=== PATIENT | male | born 1975 | race Caucasian/White ===

== ENCOUNTER 2021-08-21 09:46 | Emergency (ER) | payer OTHER ==
[~2021-08-21] VITALS: Ht 177.8 cm; Wt 806.0 kg
[2021-08-21 10:17] VITALS: BP_SYST 142
--- NOTE | 2021-08-21 10:25 | NUR ---
Patient to ER bed 6 to gown for evaluation. Side rails up. Report given to Jossy LYNNE.
--- NOTE | 2021-08-21 10:30 | NUR ---
ER at bedside examining patient.
--- NOTE | 2021-08-21 10:45 | NUR ---
PT C/O HEMOPYTISIS X 1.PT H/O REAL CA W/METS TO LUNGS.
[2021-08-21 10:54] LABS: BASOPHILS # (AUTO) 0.1 K/uL (0.0-0.2); BASOPHILS % (AUTO) 0.6 % (0.0-2.0); EOSINOPHILS # (AUTO) 0.2 K/uL (0.0-0.4); HEMATOCRIT 42.6 % (36-54); HEMOGLOBIN 14.6 g/dL (14.0-18.0); LYMPHOCYTES # (AUTO) 1.5 K/uL (1.0-5.5); LYMPHOCYTES % (AUTO) 17.2 % (20.5-51.5); MEAN CORPUSCULAR HEMOGLOBIN 30 pg (27-31); MEAN CORPUSCULAR HGB CONC 34 % (32-36); MEAN CORPUSCULAR VOLUME 88 fL (79.0-98.0); MONOCYTES # (AUTO) 0.7 K/uL (0.0-1.0); MONOCYTES % (AUTO) 7.8 % (1.7-9.3); NEUTROPHILS # (AUTO) 6.4 K/uL (1.8-7.7); NEUTROPHILS % (AUTO) 72.4 % (40.0-70.0); PLATELET COUNT (AUTO) 205 K/uL (130-430); RED BLOOD CELL COUNT(AUTO) 4.84 MIL/uL (4.2-6.2); RED CELL DISTRIBUTION WIDTH 14.6 % (9.0-15.0); WHITE BLOOD COUNT (AUTO) 8.9 K/uL (4.8-10.8)
[2021-08-21 11:39] LABS: CHLORIDE 100 mmol/L (98-107); SODIUM SERUM 137 mmol/L (136-145)
[2021-08-21 11:40] LABS: ANION GAP 9 (5-15); CREATININE 1.45 mg/dL (0.55-1.30); GFR AFRICAN AMERICAN 67 mL/min (>90); GLUCOSE 91 mg/dL (70-99); UREA NITROGEN, BLOOD 18 mg/dL (8-21)
[2021-08-21] MEDS ORDERED: LEVO750T45 PO (11:52)
[2021-08-21] MEDS ORDERED: TRIA10.8 NS (11:52)
[2021-08-21 12:21] VITALS: BP_SYST 142
--- NOTE | 2021-08-21 12:31 | NUR ---
Patient given written and verbal discharge instructions and verbalizes understanding. ER MD discussed with patient the results and treatment provided. Patient in stable condition. ID arm band removed. Rx of levaquin,nasacort given. Patient educated on pain management and to follow up with PMD. Pain Scale 0. Opportunity for questions provided and answered. Medication side effect fact sheet provided.
== END 2021-08-21 12:21 | disposition home or self-care (01) ==
LOC: SED 09:46
DX: R05.9 Cough, unspecified (principal); R09.82 Postnasal drip; Z79.899 Other long term (current) drug therapy; Z20.822 Contact with and (suspected) exposure to COVID-19
CPT/HCPCS: 36415; 71045; 80048; 83880; 84484; 85025; 86710; 99284